=== PATIENT | female | born 1960 | race Caucasian/White ===

== ENCOUNTER 2019-04-24 11:55 | Day surgery (SDC) | payer BC ==
[~2019-04-24 11:55] MED LIST: Midazolam 1 MG/ML 2 ML SDV ONE; Propofol 200 MG/20 ML SDV ONE; Sodium Chloride 0.9% 10 ML Syringe FLUSH PRN
[2019-04-24] MEDS: Lactated Ringers 1,000 ML IV SCH (12:48)
[2019-04-24] MEDS: Midazolam 1 MG/ML 2 ML SDV IVPUSH ONE (12:49)
[2019-04-24] MEDS ORDERED: Midazolam 1 MG/ML 2 ML SDV ONE (13:03)
[2019-04-24] MEDS ORDERED: Propofol 200 MG/20 ML SDV ONE (13:03)
--- NOTE | 2019-04-24 13:03 | PCM.HPR ---
H & P Addendum review - H & P Addendum Review Date of Original H & P: 04/07/19 Date Reviewed: 04/24/19 Time Reviewed: 13:03 Patient was Examined: No Changes
--- NOTE | 2019-04-24 13:27 | PCM.OPNOTE ---
- General Post-Op/Procedure Note Date of Surgery/Procedure: 04/24/19 Operative Procedure(s): Colonoscopy Findings: Normal Pre Op Diagnosis: FH Polyps Post-Op Diagnosis: Same Anesthesia Technique: DARIAN Primary Surgeon: Byron Valentin Anesthesia Provider: Destiny Nagel Complications: None Condition: Good
[2019-04-24 17:15] VITALS: BP 116/63; PULSE 61
--- NOTE | 2019-04-25 10:34 | OR ---
Date of Procedure: 04/24/2019 PREOPERATIVE DIAGNOSIS: Family history of colon polyps. POSTOPERATIVE DIAGNOSIS: Normal colonoscopy. PROCEDURE: Colonoscopy. ANESTHESIA: IV sedation. PROCEDURE IN DETAIL: The patient was brought to the procedure room where she was placed on her left side and IV sedation administered. Digital rectal exam was performed which was normal. Colonoscope was inserted and advanced to the level of the cecum without difficulty. Cecal position was confirmed by identifying the appendiceal lumen and ileocecal valve. Prep was good and surfaces were well visualized. Upon withdrawing the scope, the ascending, transverse, and descending colon were normal in appearance. Sigmoid colon and rectum were normal. Retroflexion was normal. Air was removed and the scope withdrawn. The patient tolerated the procedure well and returned to recovery in stable condition. Recommend routine colon screening in 5 years. MODL NEFTALI HAMMOND MD /[id number]
== END 2019-04-24 14:29 | disposition home or self-care (01) ==
LOC: LL.SDS 11:55
PROVIDERS: ATTEND Surgery
DX: Z12.11 Encounter for screening for malignant neoplasm of colon (principal); I10 Essential (primary) hypertension; E78.00 Pure hypercholesterolemia, unspecified; F32.9 Major depressive disorder, single episode, unspecified; Z88.0 Allergy status to penicillin; Z80.0 Family history of malignant neoplasm of digestive organs; Z79.82 Long term (current) use of aspirin; Z79.899 Other long term (current) drug therapy
CPT/HCPCS: J2250; J2704; J7120

== ENCOUNTER 2024-07-24 10:37 | Day surgery (SDC) | payer BC ==
[~2024-07-24 10:37] MED LIST changes: -Midazolam 1 MG/ML 2 ML SDV ONE
[2024-07-24] MEDS: Lactated Ringers 1,000 ML IV SCH (11:15)
[2024-07-24 12:31] VITALS: BP 142/83; PULSE 57
== END 2024-07-24 12:40 | disposition home or self-care (01) ==
LOC: LL.SDS 10:37
PROVIDERS: ATTEND Surgery
DX: Z12.11 Encounter for screening for malignant neoplasm of colon (principal); K21.9 Gastro-esophageal reflux disease without esophagitis; Z86.0100 Personal history of colon polyps, unspecified; I10 Essential (primary) hypertension; E78.5 Hyperlipidemia, unspecified; F32.A Depression, unspecified; Z79.899 Other long term (current) drug therapy
CPT/HCPCS: 00813; J2704; J7120